=== PATIENT | male | born 1990 | race Two or more races ===

== ENCOUNTER 2017-02-20 16:18 | Emergency (ER) | payer SELFPAY ==
[~2017-02-20] VITALS: Ht 177.8 cm; Wt 77.1 kg
[2017-02-20] MEDS ORDERED: Bacitracin Oint UD TOPIC ONE (16:30)
[2017-02-20] MEDS ORDERED: Tetanus/Diptheria/Pertussis Vaccine 0.5ml Syr IM ONE (16:30)
[2017-02-20] MEDS ORDERED: ANTIBIOTIC28.4 GM TP (16:51)
[2017-02-20] MEDS ORDERED: IBUPROFEN600 MG ORAL (16:51)
[2017-02-20] MEDS ORDERED: CEPHALEXIN500 MG ORAL (16:51)
[2017-02-20 17:14] VITALS: BP 111/58
[2017-02-20 17:19] VITALS: BP 111/58
--- NOTE | 2017-02-20 22:13 | Emergency Room Report ---
History of Present Illness General Chief Complaint: Laceration Source: Patient Present Illness HPI The patient is a 26-year-old male presenting for a laceration of the left index finger. This occurred prior to arrival. He states that he was using a knife at home which slipped. He describes the pain as a 2/10 dull ache and does not radiate. He denies any numbness. He denies any other symptoms. Last tetanus shot is unknown Allergies: Coded Allergies: No Known Allergies (Unverified , 02/20/17) Patient History Past Medical History: see triage record Pertinent Family History: none Reviewed Nursing Documentation: PMH: Agreed, PSxH: Agreed Nursing Documentation-PMH Past Medical History: No Stated History Review of Systems All Other Systems: negative except mentioned in HPI Physical Exam Vital Signs Date Time Temp Pulse Resp B/P (MAP) Pulse Ox O2 Delivery O2 Flow Rate FiO2 02/20/17 16:22 97.5 57 20 111/58 98 Room Air Sp02 EP Interpretation: reviewed, normal General Appearance: no apparent distress, alert, GCS 15, non-toxic Head: normocephalic, atraumatic Eyes: bilateral eye normal inspection, bilateral eye PERRL Musculoskeletal: normal range of motion, tender - TTP over the L distal finger over laceration site Neurologic: alert, oriented x3, responsive, motor strength/tone normal, sensory intact, speech normal Psychiatric: judgement/insight normal, memory normal, mood/affect normal, no suicidal/homicidal ideation Skin: normal turgor, laceration - L index finger has 1cm avuslion of nail Lymphatic: normal inspection Medical Decision Making PA Attestation Dr. Horta is my supervising physician. Patient management was discussed with my supervising physician Diagnostic Impression: Primary Impression: Laceration of index finger Qualified Codes: S61.311A - Laceration without foreign body of left index finger with damage to nail, initial encounter ER Course The patient is a 26-year-old male presenting for a laceration of the left index finger. Ddx considered include but not limited to fracture, tendon/ligament injury, avulsion, nerve damage PE: NAD L index finger has 1cm avulsion of nail. No active bleeding. Full AROM. The area is cleaned with normal saline and Betadine. He is given a tetanus Wound is dressed with bacitracin and sterile dressing Will be given a prescription for antibiotics and discharged home. ER precautions are given Last Vital Signs Date Time Temp Pulse Resp B/P (MAP) Pulse Ox O2 Delivery O2 Flow Rate FiO2 02/20/17 17:19 97.5 67 20 111/58 98 Room Air Status: improved Disposition: HOME, SELF-CARE Condition: Improved Scripts Bacitracin Zinc (ANTIBIOTIC) 28.4 Gm Oint...g. 28.4 GM TP TID, #28 GM Prov: EDITH VENTURAANatalio 02/20/17 Cephalexin* (KEFLEX*) 500 Mg Capsule 500 MG ORAL EVERY 12 HOURS, #14 CAP 0 Refills Prov: EDITH VENTURA.A. 02/20/17 Ibuprofen* (MOTRIN*) 600 Mg Tablet 600 MG ORAL Q8H Y for For Pain, #30 TAB 0 Refills Prov: EDITH VENTURA.A. 02/20/17 Referrals: NOT CHOSEN IPA/MD,REFERRING (PCP) Patient Instructions: Nonsutured Laceration Care Additional Instructions: I discussed my findings with the patient. All questions and concerns have been answered. Treatment and medication compliance have been addressed. I advised the patient that they need to follow up with PMD in 3-5 days. Return to ED if symptoms worsen, new symptoms arise, or if needed for any reason. Patient verbalized understanding of discharge instructions. EDITH VENTURA Feb 20, 2017 22:12
== END 2017-02-20 17:20 | disposition home or self-care (01) ==
LOC: EMR 17:01
DX: S61.211A Laceration without foreign body of left index finger without damage to nail, initial encounter (principal); Z23 Encounter for immunization; W26.0XXA Contact with knife, initial encounter; Y92.009 Unspecified place in unspecified non-institutional (private) residence as the place of occurrence of the external cause
CPT/HCPCS: 90471; 90715; 99284